=== PATIENT | male | born 1980 | race African-American/Black ===

== ENCOUNTER 2019-04-15 18:37 | Inpatient (IN) | payer MEDICAID ==
[~2019-04-15] VITALS: Ht 182.9 cm; Wt 92.7 kg
[2019-04-21 12:25] VITALS: BP 118/88
== END 2019-04-21 17:28 | disposition home or self-care (01) | DRG 432 ==
LOC: ED 20:41 → EDIP 21:09 → 5SO 21:52
PROVIDERS: ADMIT Internal Medicine; ATTEND Internal Medicine
DX: K70.11 Alcoholic hepatitis with ascites (principal); I50.23 Acute on chronic systolic (congestive) heart failure; D68.9 Coagulation defect, unspecified; I42.9 Cardiomyopathy, unspecified; N17.9 Acute kidney failure, unspecified; E63.9 Nutritional deficiency, unspecified; F10.20 Alcohol dependence, uncomplicated; F17.210 Nicotine dependence, cigarettes, uncomplicated; Z59.0 Homelessness; Z86.73 Personal history of transient ischemic attack (TIA), and cerebral infarction without residual deficits; Z91.19 Patient's noncompliance with other medical treatment and regimen; Z95.810 Presence of automatic (implantable) cardiac defibrillator; K70.40 Alcoholic hepatic failure without coma; K70.31 Alcoholic cirrhosis of liver with ascites
CPT/HCPCS: 36415; 96374; 99285; C8929; 71045; 76705; 80048; 80053; 80074; 80307; 82103; 82140; 82390; 83516; 83735; 83880; 84484; 85025; 85610; 86038; 86225; 86704; 86706; 86708; 86803; 87324; 87340; 93005; G0378; J3430; Q9957; J1940; J7510